=== PATIENT | female | born 1980 | race Caucasian/White ===

== ENCOUNTER 2019-11-19 20:32 | Outpatient (CLI) | payer MEDICAID | END 2019-11-19 20:33 | disposition critical access hospital (66) | LOC: EMS 20:32 | PROVIDERS: ATTEND Surgery | DX: O72.0 Third-stage hemorrhage (principal) | CPT/HCPCS: A0425; A0429; A0999 ==

== ENCOUNTER 2019-11-19 20:47 | Observation (INO) | payer MEDICAID ==
[2019-11-19] MEDS ORDERED: TRANEXAMIC ACID 1,000 MG/10 ML VIAL ONE (20:56)
[2019-11-19] MEDS ORDERED: fentaNYL 100 MCG/2 ML VIAL ONE (20:56)
[2019-11-19] MEDS ORDERED: fentaNYL 100 MCG/2 ML VIAL IVP STA (20:58)
[2019-11-19] MEDS ORDERED: SODIUM CHLORIDE 0.9% 1,000 ML IV ONE ×2 (20:58)
[2019-11-19] MEDS ORDERED: TRANEXAMIC ACID 1,000 MG in SODIUM CHLORIDE 0.9% 100ML 100 ML IV STA (20:58)
--- NOTE | 2019-11-19 21:00 | ED Physician Documentation ---
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) Review of Systems Ten Systems: 10 systems reviewed and negative Constitutional: reports: Reviewed and negative Throat: reports: Reviewed and negative Cardiac: reports: Reviewed and negative PD PAST MEDICAL HISTORY - Allergies Allergies/Adverse Reactions: Allergies Allergy/AdvReac Type Severity Reaction Status Date / Time No Known Drug Allergies Allergy Verified 11/19/19 20:58 PD ED PE NORMAL - Vitals Vital signs reviewed: Yes - General General: Alert and oriented X 3, Other (She appears uncomfortable and is still khushi) - HEENT HEENT: PERRL, EOMI - Neck Neck: Supple, no meningeal sign, No bony TTP - Cardiac Cardiac: RRR, No murmur - Respiratory Respiratory: No respiratory distress, Clear bilaterally - Abdomen Abdomen: Non tender - Female Female : Deferred (OB here on arrival) - Back Back: No CVA TTP, No spinal TTP - Derm Derm: Normal color, Warm and dry - Extremities Extremities: No edema, No calf tenderness / cord - Neuro Neuro: Alert and oriented X 3, Normal speech - Psych Psych: Normal mood, Normal affect Results - Vitals Vitals: Vital Signs - 24 hr 11/19/19 20:55 Temperature 36.5 C Heart Rate 91 Respiratory 26 H Rate Blood Pressure 138/73 H O2 Saturation 100 Oxygen O2 Source Room air - Labs Labs: Laboratory Tests 11/19/19 11/19/19 11/19/19 21:03 21:03 21:03 WBC 11.5 H RBC 3.88 L Hgb 10.8 L Hct 33.5 L MCV 86.3 MCH 27.8 MCHC 32.2 RDW 17.2 H Plt Count 210 MPV 10.0 Neut # (Auto) 9.7 H Lymph # (Auto) 0.9 L [place] # (Auto) 0.8 Eos # (Auto) 0.1 Baso # (Auto) 0.1 Absolute Nucleated RBC 0.00 Nucleated RBC % 0.0 PT 12.7 H INR 1.1 APTT 23.7 L Fibrinogen 517 H Sodium 134 L Potassium 3.0 L Chloride 108 Carbon Dioxide 14 L Anion Gap 12.0 BUN 13 Creatinine 0.8 Estimated GFR (MDRD) 81 L Glucose 132 H Calcium 7.6 L Total Bilirubin 0.5 AST 23 ALT 18 Alkaline Phosphatase 96 Total Protein 5.7 L Albumin 2.8 L Globulin 2.9 Albumin/Globulin Ratio 1.0 Lipase 41 PD MEDICAL DECISION MAKING - ED course ED course: 39-year-old woman presents by ambulance for hemorrhage, the environmental field team member, Dr. Dangelo was here on arrival. She manually removed the placenta and we gave her TXA which seemed to stop the bleeding. She will place her in observation for serial monitoring. Departure - Departure Disposition: ED Place in Observation Clinical Impression: hemorrhage Qualifiers: hemorrhage type: secondary hemorrhage Qualified Code(s): O72.2 - Delayed and secondary hemorrhage Condition: Serious
[2019-11-19] MEDS ORDERED: MIDAZOLAM 2 MG/2 ML VIAL ONE (21:02)
[2019-11-19] MEDS ORDERED: MIDAZOLAM 2 MG/2 ML VIAL IVP STA (21:02)
[2019-11-19] MEDS ORDERED: ceFAZolin 2 GM in SODIUM CHLORIDE 0.9% 100ML 100 ML IV STA ×2 (21:03→22:43)
--- NOTE | 2019-11-19 21:05 | ANESTHESIA ---
Pre-Anesthesia VS, & Labs - Diagnosis Retained placenta - Procedure Standby for potential EUA, removal of retained placenta Vital Signs: Temp Pulse Resp BP Pulse Ox 36.5 C 91 26 H 138/73 H 100 11/19/19 20:55 11/19/19 20:55 11/19/19 20:55 11/19/19 20:55 11/19/19 20:55 Height 5 ft 2 in Weight (kg) 63.503 kg Body Mass Index 25.6 - NPO Other - Is Patient ?: No - Lab Results Lab results reviewed: Yes Fish Bones: 11/20/19 05:17 11/20/19 05:17 Home Medications and Allergies Active Medications Tranexamic Acid 1,000 mg/ (Sodium Chloride) 110 mls @ 660 mls/hr IV ONCE STA Stop: 11/19/19 21:07 Midazolam HCl (Versed) 1 mg IVP ONCE STA Stop: 11/19/19 21:03 Allergies/Adverse Reactions: Allergies Allergy/AdvReac Type Severity Reaction Status Date / Time No Known Drug Allergies Allergy Verified 11/19/19 20:58 Anes History & Medical History - Anesthetic History Anesthesia Complications: reports: No previous complications Family history of Anesthesia Complications: Denies Family history of Malignant Hyperthermia: Denies - Medical History Cardiovascular: reports: None Pulmonary: reports: None Gastrointestinal: reports: None Urinary: reports: None Neuro: reports: None Musculoskeletal: reports: None Endocrine/Autoimmune: reports: None Blood Disorders: reports: None Skin: reports: None Smoking Status: Never smoker Psychosocial: reports: No issues indicated Exam General: Alert, Moderate distress Dental: WNL Mouth Opening: Greater than 4 Fingerbreadths Neck Mobility: Normal Mallampati classification: II Thyromental Distance: greater than 6 cm Plan Anesthesia Type: General Consent for Procedure(s) Verified and Reviewed: No Code Status: Attempt Resuscitation ASA classification: 2-Mild systemic disease Is this case an emergency?: Yes
[2019-11-19 21:10] LABS: BASOPHILS # (AUTO) 0.1 10^3/uL (0.0-0.1); BASOPHILS % (AUTO) 0.4 %; EOSINOPHILS # (AUTO) 0.1 10^3/uL (0.0-0.7); EOSINOPHILS % (AUTO) 0.4 %; HGB - HEMOGLOBIN 10.8 g/dL (12.0-16.0); LYMPHOCYTES # (AUTO) 0.9 10^3/uL (1.5-3.5); LYMPHOCYTES % (AUTO) 7.6 %; MEAN CORPUSCULAR HEMOGLOBIN 27.8 pg (27.0-31.0); MEAN CORPUSCULAR HGB CONC 32.2 g/dL (32.0-36.0); MEAN CORPUSCULAR VOLUME 86.3 fL (81.0-99.0); MONOCYTES # (AUTO) 0.8 10^3/uL (0.0-1.0); MONOCYTES % (AUTO) 6.5 %; NEUTROPHILS # (AUTO) 9.7 10^3/uL (1.5-6.6); NEUTROPHILS % (AUTO) 84.5 %; PLT - PLATELET COUNT 210 10^3/uL (130-450); RED BLOOD COUNT 3.88 10^6/uL (4.20-5.40); RED CELL DISTRIBUTION WIDTH 17.2 % (12.0-15.0); WHITE BLOOD COUNT 11.5 x10^3/uL (4.8-10.8)
[2019-11-19 21:21] LABS: INR 1.1 (0.8-1.2); PT - PROTHROMBIN TIME 12.7 secs (9.9-12.6)
[2019-11-19 21:24] LABS: ALBUMIN 2.8 g/dL (3.2-5.5); BILIRUBIN,TOTAL 0.5 mg/dL (0.2-1.0); CALCIUM 7.6 mg/dL (8.5-10.3); CREATININE 0.8 mg/dL (0.4-1.0); TOTAL PROTEIN 5.7 g/dL (6.7-8.2)
[2019-11-19 21:40] LABS: PARTIAL THROMBOPLASTIN TIME 23.7 secs (24.9-33.3)
[2019-11-19] MEDS ORDERED: POTASSIUM CHLORIDE 20 MEQ TABLET PO STA (22:45)
[2019-11-19] MEDS ORDERED: SIMETHICONE CHEW 80 MG TABLET PO PRN (22:46)
[2019-11-19] MEDS ORDERED: DOCUSATE SODIUM 100 MG CAPSULE PO PRN (22:46)
[2019-11-19] MEDS ORDERED: ACETAMINOPHEN 500 MG TABLET PO PRN (22:46)
[2019-11-19] MEDS ORDERED: IBUPROFEN 600 MG TABLET PO PRN (22:46)
--- NOTE | 2019-11-19 22:52 | HISTORY & PHYSICAL EXAMINATION ---
Chief Complaint - Chief Complaint Chief Complaint: retained placenta/ hemorrhage History of Present Illness - Admitted From Admitted From:: [facility] - History Obtained From History obtained from: patient/transferring provider - History of Present Illness HPI Comment/Other: Patient is a 39 yo s/p Precipitous delivery at an outside center with retained placenta and hemorrhage Patient has been followed by Sophia Sanches of [facility], [place]. has been uncomplicated. Past medical history is unremarkable. Patient had a precipitous delivery at the center. Placenta was not delivered and remained retained. Patient had extensive blood loss with the outside center weighing pads to quantify loss.Upon arrival provider Estimated a 1200 cc blood loss, stating that measured pad or quantified as over 800 cc. There was an additional soaked pad under patient.Patient was coherent and intera ctive although obviously uncomfortable. Endorsed pain slightly above suprapubic area at mid uterus. No prior surgical interventions involving the uterus. Patient had had 3 prior vaginal deliveries. Reportedly has history of uterine fibroids. History - POLST Patient has POLST: No Meds/Allgy - Allergies Allergies/Adverse Reactions: Allergies Allergy/AdvReac Type Severity Reaction Status Date / Time No Known Drug Allergies Allergy Verified 11/19/19 20:58 Review of Systems - Other Findings Other Findings: As per HPI otherwise remaining systems are negative. Exam - Vital Signs Vital Signs: Vital Signs x48h Temp Pulse Resp BP Pulse Ox 11/19/19 22:36 90 16 114/64 100 11/19/19 21:30 91 16 120/73 100 11/19/19 20:55 97.7 F 91 26 H 138/73 H 100 - Physical Exam General Appearance: positive: Moderate distress Neck: positive: Nml inspection Respiratory: positive: No respiratory distress Cardiovascular: positive: Regular rate & rhythm Abdomen: positive: Other (Moderate tenderness mid-uterus above suprapubic area) Skin: positive: Color nml Extremities: positive: Non-tender Neurologic/Psychiatric: positive: Oriented x3 Comments/Other: Large pool of blood under buttocks. Segment of umbilical cord protruding from vagina. Portion of placenta in mid-vaginal vault with remainder extending into uterine fundus. Conclusion/Plan - Lab Results Fish Bones: 11/20/19 00:19 11/19/19 21:03 - Other Other Results/Comments: 39 yo G4 now P4 with retained placenta and PPH -Typed and crossed for 2 units with 2 units of uncrossmatched O neg blood standing by -OR team standing by for possible D&C -Will pretreat with fentanyl prior to attempt at manual extraction -Tranexamic acid given to aid with blood loss -EBL estimated to be between 1500 and 2L based on weighed pads -See procedure note Successful manual extraction of placenta Cefazolin 2g IV given for manual exploration of uterus Admit for obs overnight to trend HCT
[2019-11-19] MEDS ORDERED: LACTATED RINGERS 1,000 ML IV SCH (23:00)
[2019-11-20 00:29] LABS: BASOPHILS % (AUTO) 0.4 %; EOSINOPHILS % (AUTO) 0.2 %; HGB - HEMOGLOBIN 9.9 g/dL (12.0-16.0); LYMPHOCYTES # (AUTO) 0.9 10^3/uL (1.5-3.5); LYMPHOCYTES % (AUTO) 8.1 %; MEAN CORPUSCULAR HEMOGLOBIN 28.5 pg (27.0-31.0); MEAN CORPUSCULAR HGB CONC 32.6 g/dL (32.0-36.0); MEAN CORPUSCULAR VOLUME 87.6 fL (81.0-99.0); MEAN PLATELET VOLUME 10.2 fL (7.9-10.8); MONOCYTES # (AUTO) 0.5 10^3/uL (0.0-1.0); MONOCYTES % (AUTO) 4.7 %; NEUTROPHILS # (AUTO) 9.3 10^3/uL (1.5-6.6); PLT - PLATELET COUNT 210 10^3/uL (130-450); RED BLOOD COUNT 3.47 10^6/uL (4.20-5.40); RED CELL DISTRIBUTION WIDTH 17.2 % (12.0-15.0); WHITE BLOOD COUNT 10.8 x10^3/uL (4.8-10.8)
--- NOTE | 2019-11-20 02:44 | DELIVERY NOTE ---
Delivery Note - Episiotomy Type Episiotomy Type: positive: None - Placenta Placenta: positive: Manual removal, Retained - Estimated Blood Loss Estimated Blood Loss (in cc): 2,000 - Post Delivery Events Post Delivery Events: positive: Hemorrhage, Retained placenta (Patient is a 39 yo G4 now P4 that had a precipitous delivery at [facility], delivering a viable female infant weighing 6lb10 oz. Placenta was retained and EBL at [facility] was estimated to be about 1200 cc based on weighed chucks. Patient presented to ED via ambulance. Chucks were again soaked and weighted 737g. [facility] OB provider estimates that cumulatinve EBL was about 1500 based on measures at outside facility. Situation was described to patient and attempts at manual extraction with fentanyl pre-treatment vsproceeding directly to OR for D&C were offered as managment options. Patient opted for manual removal. She receivec 100 mcg IV fentanyl and manual extraction was performed. The bulk of the placenta was removed on initial manual sweep. Residual placenta tissue was removed with second manual sweep of the uterus. Versed was drawn up for pain management but was NOT administered. Fundus was firm after second sweep and bleeding was markedly diminished. Perineum was inspected and found to be intact. Cefazolin 2g IV was given for antibiotic prophylaxis. Patient was admitted for observation and trending of HCT. Procedure was well tolerated and without additional complication. EBL estimated otbe between 1500 and 2000 cc.)
[2019-11-20 05:23] LABS: BASOPHILS % (AUTO) 0.2 %; EOSINOPHILS % (AUTO) 0.4 %; HGB - HEMOGLOBIN 8.9 g/dL (12.0-16.0); LYMPHOCYTES % (AUTO) 12.3 %; MEAN CORPUSCULAR HEMOGLOBIN 28.3 pg (27.0-31.0); MEAN CORPUSCULAR HGB CONC 32.7 g/dL (32.0-36.0); MEAN CORPUSCULAR VOLUME 86.6 fL (81.0-99.0); MEAN PLATELET VOLUME 9.9 fL (7.9-10.8); MONOCYTES # (AUTO) 0.6 10^3/uL (0.0-1.0); MONOCYTES % (AUTO) 7.6 %; NEUTROPHILS # (AUTO) 6.5 10^3/uL (1.5-6.6); PLT - PLATELET COUNT 199 10^3/uL (130-450); RED BLOOD COUNT 3.14 10^6/uL (4.20-5.40); RED CELL DISTRIBUTION WIDTH 17.4 % (12.0-15.0); WHITE BLOOD COUNT 8.2 x10^3/uL (4.8-10.8)
[2019-11-20 05:34] LABS: ALBUMIN 2.4 g/dL (3.2-5.5); ALBUMIN/GLOBULIN RATIO 0.9 (1.0-2.2); ALKALINE PHOSPHATASE 84 IU/L (42-121); ALT ALANINE AMINOTRANSFERASE 18 IU/L (10-60); AST ASPARTATE AMINOTRANSFERASE 24 IU/L (10-42); BILIRUBIN,TOTAL 0.2 mg/dL (0.2-1.0); BUN - BLOOD UREA NITROGEN 9 mg/dL (6-20); CALCIUM 8.1 mg/dL (8.5-10.3); CARBON DIOXIDE - CO2 16 mmol/L (21-32); CHLORIDE 111 mmol/L (101-111); CREATININE 0.6 mg/dL (0.4-1.0); GFR - MDRD 112 (>89); GLUCOSE 83 mg/dL (70-100); SODIUM 134 mmol/L (135-145); TOTAL PROTEIN 5.2 g/dL (6.7-8.2)
[2019-11-20 05:41] LABS: VBG PH 7.459 (7.31-7.41)
--- NOTE | 2019-11-20 08:51 | PROVIDER PROGRESS NOTE ---
Subjective - Prog Note Date Prog Note Date: 11/20/19 Prog Note Time: 08:49 - Subjective Pt reports feeling: Improved Subjective: Doing well. Mild cramping but no significant pain. Moderate lochia; within norm for this patient. Afebrile. Has been up and ambulating, voiding, tolerating po. HCT settled at 27.2 this am. No dizziness, lightheadedness, palpitations. Objective - Vital Signs/Intake & Output Vital Signs: Vital Signs x48h Temp Pulse Resp BP Pulse Ox 11/20/19 08:07 98.8 F 87 16 123/62 99 11/20/19 07:00 97.9 F 82 14 121/71 100 11/20/19 06:01 98.2 F 82 14 127/67 100 11/20/19 05:00 97.7 F 81 16 120/70 100 11/20/19 04:00 98.6 F 77 16 120/67 99 11/20/19 03:00 75 16 130/65 99 11/20/19 02:00 76 16 114/72 100 11/20/19 01:00 98.1 F 76 16 115/66 99 Intake & Output: Intake & Output 11/17/19 11/18/19 11/19/19 11/20/19 23:59 23:59 23:59 23:59 Intake Total 2210 684 Output Total 530 Balance 2210 154 - Objective General Appearance: positive: No acute distress Respiratory: positive: No respiratory distress Cardiovascular: positive: Regular rate & rhythm Abdomen: positive: Other (S&NT, FF below umbi) Skin: positive: Color nml Extremities: positive: Non-tender, No pedal edema Neurologic/Psychiatric: positive: Oriented x3 Comments/Other: Peripad with mild/moderate lochia - Lab Results Fish Bones: 11/20/19 05:17 11/20/19 05:17 Other Labs: Lab Results x24hrs 11/20/19 11/20/19 11/20/19 Range/Units 05:17 05:17 05:17 WBC 8.2 (4.8-10.8) x10^3/uL RBC 3.14 L (4.20-5.40) 10^6/uL Hgb 8.9 L (12.0-16.0) g/dL Hct 27.2 L (37.0-47.0) % MCV 86.6 (81.0-99.0) fL MCH 28.3 (27.0-31.0) pg MCHC 32.7 (32.0-36.0) g/dL RDW 17.4 H (12.0-15.0) % Plt Count 199 (130-450) 10^3/uL MPV 9.9 (7.9-10.8) fL Neut # (Auto) 6.5 (1.5-6.6) 10^3/uL Lymph # (Auto) 1.0 L (1.5-3.5) 10^3/uL [place] # (Auto) 0.6 (0.0-1.0) 10^3/uL Eos # (Auto) 0.0 (0.0-0.7) 10^3/uL Baso # (Auto) 0.0 (0.0-0.1) 10^3/uL Absolute Nucleated RBC 0.00 x10^3/uL Nucleated RBC % 0.0 /100WBC PT (9.9-12.6) secs INR (0.8-1.2) APTT (24.9-33.3) secs Fibrinogen (220-496) mg/dL VBG pH 7.459 H (7.31-7.41) Ionized Calcium 1.13 L YES (1.15-1.33) mmol/L Sodium 134 L (135-145) mmol/L Potassium 4.1 (3.5-5.0) mmol/L Chloride 111 (101-111) mmol/L Carbon Dioxide 16 L (21-32) mmol/L Anion Gap 7.0 (6-13) BUN 9 (6-20) mg/dL Creatinine 0.6 (0.4-1.0) mg/dL Estimated GFR (MDRD) 112 (>89) Glucose 83 (70-100) mg/dL Calcium 8.1 L (8.5-10.3) mg/dL Total Bilirubin 0.2 (0.2-1.0) mg/dL AST 24 (10-42) IU/L ALT 18 (10-60) IU/L Alkaline Phosphatase 84 (42-121) IU/L Total Protein 5.2 L (6.7-8.2) g/dL Albumin 2.4 L (3.2-5.5) g/dL Globulin 2.8 (2.1-4.2) g/dL Albumin/Globulin Ratio 0.9 L (1.0-2.2) Lipase (22-51) U/L Blood Type Blood Type Recheck Antibody Screen 11/20/19 11/20/19 11/19/19 Range/Units 00:19 00:19 21:03 WBC 10.8 (4.8-10.8) x10^3/uL RBC 3.47 L (4.20-5.40) 10^6/uL Hgb 9.9 L (12.0-16.0) g/dL Hct 30.4 L (37.0-47.0) % MCV 87.6 (81.0-99.0) fL MCH 28.5 (27.0-31.0) pg MCHC 32.6 (32.0-36.0) g/dL RDW 17.2 H (12.0-15.0) % Plt Count 210 (130-450) 10^3/uL MPV 10.2 (7.9-10.8) fL Neut # (Auto) 9.3 H (1.5-6.6) 10^3/uL Lymph # (Auto) 0.9 L (1.5-3.5) 10^3/uL [place] # (Auto) 0.5 (0.0-1.0) 10^3/uL Eos # (Auto) 0.0 (0.0-0.7) 10^3/uL Baso # (Auto) 0.0 (0.0-0.1) 10^3/uL Absolute Nucleated RBC 0.00 x10^3/uL Nucleated RBC % 0.0 /100WBC PT (9.9-12.6) secs INR (0.8-1.2) APTT (24.9-33.3) secs Fibrinogen (220-496) mg/dL VBG pH (7.31-7.41) Ionized Calcium (1.15-1.33) mmol/L Sodium (135-145) mmol/L Potassium (3.5-5.0) mmol/L Chloride (101-111) mmol/L Carbon Dioxide (21-32) mmol/L Anion Gap (6-13) BUN (6-20) mg/dL Creatinine (0.4-1.0) mg/dL Estimated GFR (MDRD) (>89) Glucose (70-100) mg/dL Calcium (8.5-10.3) mg/dL Total Bilirubin (0.2-1.0) mg/dL AST (10-42) IU/L ALT (10-60) IU/L Alkaline Phosphatase (42-121) IU/L Total Protein (6.7-8.2) g/dL Albumin (3.2-5.5) g/dL Globulin (2.1-4.2) g/dL Albumin/Globulin Ratio (1.0-2.2) Lipase (22-51) U/L Blood Type O POSITIVE Blood Type Recheck O POSITIVE Antibody Screen NEGATIVE 11/19/19 11/19/19 11/19/19 Range/Units 21:03 21:03 21:03 WBC 11.5 H (4.8-10.8) x10^3/uL RBC 3.88 L (4.20-5.40) 10^6/uL Hgb 10.8 L (12.0-16.0) g/dL Hct 33.5 L (37.0-47.0) % MCV 86.3 (81.0-99.0) fL MCH 27.8 (27.0-31.0) pg MCHC 32.2 (32.0-36.0) g/dL RDW 17.2 H (12.0-15.0) % Plt Count 210 (130-450) 10^3/uL MPV 10.0 (7.9-10.8) fL Neut # (Auto) 9.7 H (1.5-6.6) 10^3/uL Lymph # (Auto) 0.9 L (1.5-3.5) 10^3/uL [place] # (Auto) 0.8 (0.0-1.0) 10^3/uL Eos # (Auto) 0.1 (0.0-0.7) 10^3/uL Baso # (Auto) 0.1 (0.0-0.1) 10^3/uL Absolute Nucleated RBC 0.00 x10^3/uL Nucleated RBC % 0.0 /100WBC PT 12.7 H (9.9-12.6) secs INR 1.1 (0.8-1.2) APTT 23.7 L (24.9-33.3) secs Fibrinogen 517 H (220-496) mg/dL VBG pH (7.31-7.41) Ionized Calcium (1.15-1.33) mmol/L Sodium 134 L (135-145) mmol/L Potassium 3.0 L (3.5-5.0) mmol/L Chloride 108 (101-111) mmol/L Carbon Dioxide 14 L (21-32) mmol/L Anion Gap 12.0 (6-13) BUN 13 (6-20) mg/dL Creatinine 0.8 (0.4-1.0) mg/dL Estimated GFR (MDRD) 81 L (>89) Glucose 132 H (70-100) mg/dL Calcium 7.6 L (8.5-10.3) mg/dL Total Bilirubin 0.5 (0.2-1.0) mg/dL AST 23 (10-42) IU/L ALT 18 (10-60) IU/L Alkaline Phosphatase 96 (42-121) IU/L Total Protein 5.7 L (6.7-8.2) g/dL Albumin 2.8 L (3.2-5.5) g/dL Globulin 2.9 (2.1-4.2) g/dL Albumin/Globulin Ratio 1.0 (1.0-2.2) Lipase 41 (22-51) U/L Blood Type Blood Type Recheck Antibody Screen Assessment/Plan - Problem List (1) hemorrhage Impression: Doing well. -HCT 27 this am, no symptoms of anemia Will arrange for iron supplementation with primary OB provider Meeting goals for discharge Will fu maryanne Rouse for pp care Reviewed that patient should present to [facility] for heavy vaginal bleeding (soaking a pad an hour for 2 hours in a row) or with fever > 110.5, pain that does not improve with pain medication Qualifiers: hemorrhage type: secondary hemorrhage Qualified Code(s): O72.2 - Delayed and secondary hemorrhage
[2019-11-20 09:12] VITALS: BP 119/64
== END 2019-11-20 09:27 | disposition home or self-care (01) ==
LOC: EDUNIT# → ED 20:47 → FBP 22:42
PROVIDERS: ADMIT Obstetrics & Gynecology; ATTEND Obstetrics & Gynecology
DX: O72.0 Third-stage hemorrhage (principal); O90.81 Anemia of the puerperium
CPT/HCPCS: 36415; 59414; 80053; 82330; 83690; 85025; 85384; 85610; 85730; 86850; 86900; 86901; 96365; 96375; 99283; 99285; A9270; G0378; J7120